=== PATIENT | male | born 1995 | race Caucasian/White ===

== ENCOUNTER 2017-10-15 15:56 | Emergency (ER) | payer OTHER ==
[~2017-10-15] VITALS: Ht 188 cm; Wt 107.9 kg
[2017-10-15 16:05] VITALS: TEMP 36.8; Ht 188 cm; Wt 107.9 kg
[2017-10-15] MEDS ORDERED: IBUPROFEN 800 MG TAB PO STA (17:48)
--- NOTE | 2017-10-15 18:35 | DIAGNOSTIC IMAGING REPORT ---
TWO VIEW CHEST CLINICAL HISTORY: Cough. Left-sided chest pain. FINDINGS: PA and lateral chest radiographs are obtained. No prior studies are available for comparison at the time of dictation. The cardiomediastinal silhouette is unremarkable. An accessory azygous fissure is incidentally noted. The lungs and pleural spaces are clear. There is no pneumothorax. The bony thorax appears intact. IMPRESSION: No active disease in the chest. Electronically signed by: Be Angelo M.D. 10/15/2017 6:34 PM Dictated Date/Time: 10/15/2017 6:33 PM
--- NOTE | 2017-10-15 18:41 | EMERGENCY ROOM VISIT NOTE ---
History First contact with patient: 17:23 Chief Complaint: BACK PAIN Stated Complaint: SEVERE PAIN IN RIBS/BACK History of Present Illness The patient is a 22 year old male who presents to the Emergency Room with complaints of left-sided upper back and rib pain for the past 3 days. Patient states he has been sick with URI symptoms of cough and congestion for the past week, has been coughing a lot lately. He states his pain is constant, aching and occasionally sharp, worse with certain movements and with coughing, 8/10. He has not tried any medications, ice or heat for his pain. He denies any chest pain, shortness of breath, hemoptysis, dizziness or syncope, leg pain or swelling. He denies any increased pain with taking a deep breath or lying flat. He denies any recent fevers or chills. The pain does not radiate and he denies any abdominal pain, nausea or vomiting, or urinary symptoms. He denies any rash. Review of Systems A complete 10 point review of systems was reviewed with the patient with pertinent positives and negatives as per history of present illness. All else were negative. Social History Smoking Status: Never Smoker Alcohol Use: none Drug Use: none Marital Status: single Housing Status: lives with family Current/Historical Medications No Active Prescriptions or Reported Meds Allergies No known allergies Physical Exam Vital Signs Date Time Temp Pulse Resp B/P (MAP) Pulse Ox O2 Delivery O2 Flow Rate FiO2 10/15/17 19:04 88 20 145/75 99 10/15/17 16:05 36.8 99 16 143/81 96 Room Air Physical Exam CONSTITUTIONAL: Pleasant and cooperative. No acute distress. Well hydrated, well appearing and well nourished. HEENT: Normocephalic, atraumatic. Pupils equal, round and reactive to light, EOMI. TMs normal. Pharynx normal. Moist mucous membranes. NECK: Supple, full active range of motion without discomfort. RESPIRATORY: Clear to auscultation bilaterally with no wheezing, crackles, rhonchi or stridor. Equal expansion bilaterally. CARDIOVASCULAR: Regular rate and rhythm with no murmurs, rubs or gallops. Normal peripheral perfusion. No edema. No calf pain or swelling. CHEST WALL: There is tenderness to palpation along the lateral and posterior left mid and upper chest wall, reproduces complaints. There is no crepitus, there is no ecchymosis or swelling. GASTROINTESTINAL: Soft, nontender, nondistended. No palpable masses or HSM. No CVA tenderness. Bowel sounds present in all quadrants. MUSCULOSKELETAL: Full range of motion of all joints without discomfort. INTEGUMENTARY: No rash or other significant dermatologic conditions noted. NEUROLOGIC: Alert and oriented X 4 with normal affect. No focal neurologic deficits noted. Normal strength and sensation in all 4 extremities. Normal speech. Normal gait observed. Medical Decision & Procedures ER Provider Diagnostic Interpretation: TWO VIEW CHEST CLINICAL HISTORY: Cough. Left-sided chest pain. FINDINGS: PA and lateral chest radiographs are obtained. No prior studies are available for comparison at the time of dictation. The cardiomediastinal silhouette is unremarkable. An accessory azygous fissure is incidentally noted. The lungs and pleural spaces are clear. There is no pneumothorax. The bony thorax appears intact. IMPRESSION: No active disease in the chest. Medications Administered Medications (Trade) Dose Ordered Sig/Linnea Route Start Time Stop Time Status Last Admin Dose Admin Ibuprofen (Motrin Tab) 800 mg NOW STAT PO 10/15/17 17:48 10/15/17 17:52 DC 10/15/17 17:57 800 MG Medical Decision CC: Patient presenting with complaint of cough and left-sided rib/back pain Interpretation of Labs: Urine dip negative. Differential Diagnosis: Includes, but not limited to musculoskeletal pain, costochondritis, viral URI, bronchitis, pneumonia, PE, among others. Medication Reconciliation: I attest that I have personally reviewed the patient' s current medication list. Initial vital signs review: I reviewed the patient's vital signs and interpret them as follows: T: Afebrile; BP: Hypertensive; HR: Within normal limits; RR : Within normal limits; Pulse Ox: Within normal limits on room air. Blood pressure screening: The patient was found to have an elevated blood pressure, this was felt to be situational. Summary: Patient was evaluated at bedside, history and physical exam performed. Patient is alert and oriented, no acute distress, resting calmly the stretcher. Patient's lungs are clear. No shortness of breath. Patient has reproducible pain along the left lateral and posterior chest wall. I have a very low suspicion for PE given negative PERC score. Patient states he is concerned for possible kidney stone, although he states he has no history of this. He does not have any CVA tenderness or abdominal/flank pain on exam. Orders were placed at bedside for urine dip to rule out hematuria, chest x-ray to evaluate for pneumonia. Chest x-ray is unremarkable, no acute abnormalities. UA is negative. Patient was given Motrin for his pain, he reports improvement in his pain. Patient reassessed multiple times throughout ED stay, he is noted to be resting comfortably and even sleeping at times. Patient states that his pain is improved overall. The patient was updated on all results and plan for discharge, he was encouraged to follow up with his primary care provider if his symptoms persist. The patient was also given strict return precautions should her symptoms worsen in any way, he verbalized understanding. The patient was discharged home in stable condition and ambulatory. Impression Primary Impression: Costochondritis Departure Information Dispostion Home / Self-Care Condition GOOD Prescriptions No Active Prescriptions or Reported Meds Referrals Marcos Gregory M.D. (PCP) Patient Instructions My [facility] Additional Instructions You have been evaluated in the emergency department for your cough and left rib pain. There is no evidence of pneumonia on your chest x-ray. You most likely have a respiratory virus, which may last up to 14 days. For pain, you can use the following [id number] medicines (if >12 yo): - Regular strength (325mg/tab) Tylenol (acetaminophen) 2 tabs every 4-6 hours as needed. Do not exceed 10 tablets in a 24 hour period. Avoid taking more than 3000 mg of Tylenol per day. This includes any other sources of acetaminophen you may take on a regular basis. - Regular strength (200 mg/tab) Advil (ibuprofen) 3 tabs every 6-8 hours as needed. Do not exceed a dose of 2400 mg per day. - For best results, alternate dosing of Tylenol and Advil. Apply heating pad to your left side and back to help with discomfort. Drink plenty of fluids to stay well hydrated. Please follow-up with your PCP or at an urgent care in the next few days to be rechecked if your symptoms are not getting any better. Please return to the emergency department if your symptoms worsen over the next 2-3 days despite treatment course outlined above. Return to the emergency department if you develop the following symptoms of: inability to swallow solids , liquids, or drool; excessive wheezing or inability to catch your breath; worsening chest pain, coughing up blood, severe dizziness or passing out; fever or pain that becomes unmanageable with [id number] medications; or any other concerns.
[2017-10-15 19:04] VITALS: BP 145/75; PULSE 88; O2SAT 99
== END 2017-10-15 19:06 | disposition home or self-care (01) ==
LOC: C.EDB 15:58 → C.EDD 19:06
DX: M94.0 Chondrocostal junction syndrome [Tietze] (principal)